=== PATIENT | male | born 1960 | race Caucasian/White ===

== ENCOUNTER 2017-02-16 13:13 | Emergency (ER) | payer OTHER ==
[~2017-02-16] VITALS: Ht 167.6 cm; Wt 88.5 kg
[2017-02-16 13:44] LABS: ABSOLUTE BASOPHIL COUNT 0 /CUMM (0.0-0.2); ABSOLUTE EOSINOPHIL COUNT 0 /CUMM (0.0-0.7); ABSOLUTE GRANULOCYTE CT 4.9 /CUMM (1.4-6.5); ABSOLUTE LYMPH COUNT 1.4 /CUMM (1.2-3.4); ABSOLUTE MONOCYTE COUNT 0.6 /CUMM (0.10-0.60); BASOPHIL % 0.2 % (0.0-2.0); EOSINOPHIL % 0.3 % (0-5); GRANULOCYTE % 71.4 % (42.2-75.2); HEMATOCRIT 45.7 % (42-52); MEAN CORPUSCULAR HGB 29.1 PG (27.0-31.0); MEAN CORPUSCULAR HGB CONC 32.7 G/DL (33.0-37.0); MEAN PLATELET VOLUME 8.5 FL (7.4-10.4); PLATELET COUNT 179 /CUMM (130-400); RBC DISTRIBUTION WIDTH 13.8 % (11.5-14.5); RED BLOOD CELL CT 5.13 /CUMM (4.70-6.10); WHITE BLOOD CELL COUNT 6.8 /CUMM (4.8-10.8)
--- NOTE | 2017-02-16 15:24 | ED GENERAL ADULT ---
History of Present Illness General Chief Complaint: General Adult Stated Complaint: SENT IN BY MD, ABNORMAL EKG, WEAKNESS Source: patient Exam Limitations: no limitations Vital Signs & Intake/Output Vital Signs & Intake/Output Vital Signs Date Time Temp Pulse Resp B/P B/P Pulse O2 O2 Flow FiO2 Mean Ox Delivery Rate 02/16 1709 97.8 61 18 122/83 98 02/16 1551 99 Room Air 02/16 1519 97.6 64 18 127/85 97 02/16 1331 97.4 56 16 126/77 97 Room Air Allergies Coded Allergies: No Known Allergies (02/16/17) Reconcile Medications Aspirin (Ecotrin*) 81 MG TABLET.DR 1 TAB PO DAILY HEART/BLOOD (Reported) Atorvastatin Calcium 40 MG TABLET 1 TAB PO DAILY CHOLESTEROL (Reported) Metoprolol Succinate 50 MG TAB.ER.24H 1 TAB PO DAILY HEART/BP (Reported) Sucralfate (Carafate) 1 GRAM TABLET 1 TAB PO 4 TIMES/DAY GASTRITIS Triage Note: PT SENT IN BY PCP FOR EKG CHANGES. EKG DONE AND SHOWN TO DR. KOENIG AT TRIAGE. PT HAS HX OF CAD AND PT WAS SWEATING HAD SOME NAUSEA AND LEFT ARM PAIN. PT STATES HE JUST DOES NOT FEEL RIGHT. Triage Nurses Notes Reviewed? yes Onset: Abrupt Duration: hour(s): Timing: recent history HPI: 02/16/17 3 PM 56-year-old Sammarinese speaking male presents to the emergency department with nausea and diaphoresis that began last night. The patient states he was in his usual state of health until last night when he developed nausea and diaphoresis. He denies any chest pain or shortness of breath. He was seen at the [facility] and EKG was done which showed an age indeterminate inferior infarct and he was referred to the emergency department for further evaluation. The onset of the symptoms have been abrupt, the duration was just a few hours prior to arrival, the severity is significant; as his symptoms required him to come to the emergency department for care. He does have a past medical history of coronary artery disease and is status post stents. Past History Travel History Traveled to [place] past 21 day No Medical History Any Pertinent Medical History? see below for history Cardiovascular: CAD, 2 STENTS 2016 ND X2 Gastrointestinal: pancreatitis Surgical History Surgical History: stents Psychosocial History What is your primary language Sammarinese Tobacco Use: Never used ETOH Use: denies use Illicit Drug Use: denies illicit drug use Family History Hx Contributory? Yes (pancreatitis) Review of Systems Review of Systems Constitutional: Denies: fever. EENTM: Denies: visual changes. Respiratory: Denies: cough, short of breath, sputum production. Cardiovascular: Denies: chest pain. GI: Reports: nausea. Denies: abdominal pain, vomiting. Genitourinary: Reports: no symptoms. Musculoskeletal: Reports: no symptoms. Skin: Reports: no symptoms. Neurological/Psychological: Reports: no symptoms. Hematologic/Endocrine: Reports: no symptoms. Immunologic/Allergic: Reports: no symptoms. Physical Exam Physical Exam General Appearance: well developed/nourished, alert, awake, anxious, mild distress Head: atraumatic, normal appearance Eyes: Bilateral: normal appearance, PERRL, EOMI. Ears, Nose, Throat: normal pharynx, normal ENT inspection, hearing grossly normal Neck: normal inspection, supple, full range of motion Respiratory: normal breath sounds, chest non-tender, no respiratory distress Cardiovascular: regular rate/rhythm Peripheral Pulses: 4+ radial (R), 4+ radial (L) Gastrointestinal: soft, non-tender Back: normal range of motion Extremities: no edema Neurologic/Psych: no motor/sensory deficits, awake, alert, oriented x 3 Skin: intact, normal color, warm/dry Core Measures ACS in differential dx? No CVA/TIA Diagnosis: No Severe Sepsis Present: No Septic Shock Present: No Progress Differential Diagnoses I considered the following diagnoses in my evaluation of the patient: [Acute coronary syndrome, pancreatitis, cholecystitis, cholangitis, gastritis, GERD] Plan of Care: Orders Procedure Date/time Status EKG 02/16 1644 Active Add-on Test (ER Only) 02/16 1540 Active LIPASE 02/16 1337 Complete AMYLASE 02/16 1337 Complete TROPONIN LEVEL 02/16 1334 Complete COMPREHENSIVE METABOLIC PANEL 02/16 1334 Complete CBC WITHOUT DIFFERENTIAL 02/16 1334 Complete EKG 02/16 1322 Active Laboratory Tests 02/16/17 1337: Anion Gap 12, Estimated GFR > 60, BUN/Creatinine Ratio 21.4, Glucose 96, Calcium 9.9, Total Bilirubin 2.1 H, AST 32, ALT 79 H, Alkaline Phosphatase 85, Troponin I < 0.01, Total Protein 7.9, Albumin 4.7, Globulin 3.2, Albumin/ Globulin Ratio 1.5, Amylase 38, Lipase 45, CBC w Diff NO MAN DIFF REQ, RBC 5.13, MCV 89.0, MCH 29.1, RDW 13.8, MPV 8.5, Gran % 71.4, Lymphocytes % 19.9 L, Monocytes % 8.2, Eosinophils % 0.3, Basophils % 0.2, Absolute Granulocytes 4.9, Absolute Lymphocytes 1.4, Absolute Monocytes 0.6, Absolute Eosinophils 0, Absolute Basophils 0, PUBS MCHC 32.7 L Initial ED EKG: NSR, old IWMI Prior EKG: unchanged Repeat EKG: unchanged Departure Departure Disposition: HOME OR SELF CARE Condition: Stable Clinical Impression Primary Impression: Weakness Referrals: SHIRA DUNN MD (PCP/Family) Departure Forms: Customer Survey General Discharge Information Prescriptions: Current Visit Scripts Sucralfate (Carafate) 1 TAB PO 4 TIMES/DAY #40 TAB Comments Patient's labs are essentially unremarkable other than mildly elevated bilirubin. His old EKG was obtained and there is no changes. His EKG was repeated and it was also unchanged. He has no abdominal pain or tenderness and ultrasound was done but the patient is unable to wait for the result. He will follow-up with his doctor this week or return to the emergency department if worse. 02/16/17 5:16 PM The patient stated that he had an episode of dizziness and sweating and nausea symptoms. Nursing note was appreciated the patient never had chest pain or shortness of breath. He denied having any arm numbness. The daughter who is at the bedside translating and assisting with the communication states that he was fine until last night. He also has a history of GERD. He had dizziness nausea persists and was sweating. EKG is unchanged 2. Troponin is nondetectable. The symptoms onset were more than 8 hours prior to arrival. Critical Care Note Critical Care Note Critical Care Time: non-applicable Critical Care Time: non-applicable
[2017-02-16] MEDS ORDERED: ATORVASTATIN CA40 M1 PO (15:26)
[2017-02-16] MEDS ORDERED: METOPROLOL SUCC50 M2 PO (15:26)
[2017-02-16] MEDS ORDERED: ASPIRIN EC81 M1 PO (15:27)
[2017-02-16 17:09] VITALS: BP 122/83
[2017-02-16] MEDS ORDERED: CARAFATE1 G1 PO (17:11)
--- NOTE | 2017-02-16 17:28 | ULTRASOUND REPORT ---
EXAMINATION: US ABDOMEN LIMITED CLINICAL INFORMATION: Nausea and elevated bilirubin. COMPARISON: None TECHNIQUE: Real-time imaging of the right upper quadrant abdominal viscera. FINDINGS: PANCREAS: Visualized head and the body of the pancreas is homogeneous in echotexture without enlargement. LIVER: The liver is normal size but contracted and increased echogenicity. No focal lesion or intrahepatic ductal dilatation seen. GALLBLADDER: Normal. The gallbladder is physiologically distended without evidence of stones, sludge, polyps, wall thickening or pericholecystic fluid. COMMON BILE DUCT: Normal in caliber measuring 0.4 cm in diameter. RIGHT KIDNEY: There is a anechoic cyst in midpole measuring 4.0 x 4.0 x 3.4 cm. No additional cyst seen. There are no echogenic renal calculi or hydronephrosis. The kidney measures 11.1 cm in maximum dimension. FREE FLUID: None. IMPRESSION: Diffusely echogenic liver without focal lesion. Right kidney cyst. No hydronephrosis or echogenic calculi. The CBD and gallbladder appears unremarkable. Visualized pancreas is unremarkable.
== END 2017-02-16 17:25 ==
LOC: ERH 13:13
PROVIDERS: Emergency Medicine
DX: R53.1 Weakness (principal)
CPT/HCPCS: 93005; 93010